=== PATIENT | female | born 1940 | race Caucasian/White ===

== ENCOUNTER 2021-10-12 17:31 | Emergency (ER) | payer MEDICARE, OTHER ==
[2021-10-12 18:24] LABS: CHLORIDE,CL 106 mEq/L (98-106); SODIUM,NA 146 mEq/L (136-145)
[2021-10-12] MEDS ORDERED: Sodium Chloride 0.9% 500 ML IV SCH (19:00)
== END 2021-10-12 19:45 | disposition home or self-care (01) ==
LOC: CC.ED 17:31
DX: S90.821A Blister (nonthermal), right foot, initial encounter (principal); B35.3 Tinea pedis; E86.0 Dehydration; E88.09 Other disorders of plasma-protein metabolism, not elsewhere classified; R79.1 Abnormal coagulation profile; Z79.01 Long term (current) use of anticoagulants; Z79.899 Other long term (current) drug therapy
CPT/HCPCS: 36415; 80053; 81003; 83735; 83880; 85025; 85610; 99284; J7040